=== PATIENT | female | born 1975 | race Caucasian/White ===

== ENCOUNTER 2017-09-07 13:01 | Inpatient (IN) | payer OTHER ==
--- NOTE | 2017-09-07 13:31 | CT ---
CT OF THE HEAD WITHOUT CONTRAST: Date: 09/07/17 COMPARISON: None. HISTORY: Right-sided weakness and slurred speech. TECHNIQUE: Serial axial CT imaging is obtained at 5 mm intervals from vertex through skull base without contrast . FINDINGS: The imaged paranasal sinuses/mastoid air cells are well aerated. There is no displaced calvarial frac ture. There is no intracranial hemorrhage, midline shift, mass effect, or ventricular enlargement. IMPRESSION: Unremarkable head CT. Results called to Dr. Garrett at 1310 hours on 09/07/17. CODE CR. POS: [facility]
[2017-09-07 13:32] LABS: #Basophils 0.1 thou/uL (0.0-0.2); #Eosinphils 0.2 thou/uL (0.0-0.7); #Lymphocytes 2.8 thou/uL (1.20-3.40); #Monocytes 0.5 thou/uL (0.11-0.59); #Neutrophils 6.4 thou/uL (1.40-6.50); %Basophils 0.7 % (0.0-1.0); %Eosinophils 2.1 % (0.0-10.0); %Lymphocytes 28.2 % (21.0-51.0); %Monocytes 5.1 % (0.0-10.0); Hematocrit 42.4 % (36.0-47.0); Mean Platelet Volume 7.1 fL (7.4-10.4); Red Blood Cell (RBC) Count 4.75 mill/uL (4.20-5.40)
[2017-09-07 13:37] LABS: PTT 28.9 SEC (22.9-36.1); Prothrombin Time 13.1 SEC (12.0-14.7)
[2017-09-07 13:54] LABS: ALT (SGPT) 21 U/L (8-55); AST (SGOT) 19 U/L (5-34); Alkaline Phosphatase 83 U/L (40-150); Anion Gap 14 mmol/L (10-20); BUN (Urea Nitrogen) 14 mg/dL (7.0-18.7); Bilirubin, Total 0.4 mg/dL (0.2-1.2); CK (CPK) 266 U/L (29-168); Calc. Creatinine Clearance 0 mL/min (70-130); Calcium 9.6 mg/dL (7.8-10.44); Carbon Dioxide 24 mmol/L (22-29); Chloride 103 mmol/L (98-107); Estimated GFR-MDRD 76; Globulin 3.2 g/dL (2.4-3.5); Protein, Total 7.7 g/dL (6.0-8.3)
--- NOTE | 2017-09-07 13:55 | CT ---
PRE AND POST CONTRAST ENHANCED CTA IMAGES OF THE BRAIN: PRE AND POST CONTRAST ENHANCED CTA IMAGES OF THE CAROTID ARTERIES: 09/07/2017 FINDINGS: Noncontrast enhanced CT images of the brain are unremarkable. Contrast is seen in the right and left common carotid arteries, right and left vertebral arteries, an d right and left internal carotid arteries. No significant evidence of stenosis or occlusion seen. Intracranially, the HA, MCA, and BRA[employer]PLER DINKEY vessels are unremarkable. No evidence of obvious aneurysm seen . IMPRESSION: Unremarkable CTA carotid and intracranial CTA. POS: [facility]
--- NOTE | 2017-09-07 13:56 | RAD ---
FRONTAL RADIOGRAPH OF CHEST: Date: 09/07/17 COMPARISON: 02/15/07. HISTORY: Altered mental status. FINDINGS: There is no pneumothorax or pleural fluid. No focal consolidation or alveolar edema. Heart and medias tinal contours appear within normal limits. IMPRESSION: No acute findings. POS: [facility]
[2017-09-07 13:58] LABS: Troponin I Less than 0.010 ng/mL (< 0.028)
[2017-09-07 16:28] VITALS: BMI 29.3
[2017-09-07] MEDS ORDERED: Ondansetron HCl/PF 4 MG/2 ML Vial IVP PRN (17:44)
[2017-09-07] MEDS ORDERED: Ondansetron ODT 4 MG TAB SL PRN (17:44)
[2017-09-07] MEDS ORDERED: Acetaminophen 325 MG TAB PO PRN (17:44)
[2017-09-07] MEDS ORDERED: hydrALAZINE 20 MG/ML VIAL SLOW IVP PRN (18:40)
[2017-09-07] MEDS: Gabapentin 300 MG CAP PO SCH (20:55)
--- NOTE | 2017-09-07 23:00 | HP ---
DATE OF ADMISSION: 09/07/2017 PRIMARY CARE PHYSICIAN: Dr. Inderjit Siddiqui. CHIEF COMPLAINT: Stroke like symptoms. 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 Per code green record, she started having right arm numbness and tingling. About 10 minutes later, she stated she did not feel good, slumped back i n a chair and was unable to move her left side or speak. Slowly her symptoms began to improve and at this time all of her symptoms resolved. She has no history of stroke and no history of high blood p ressure. While she was in the ER, she did have blood pressure of 203 systolic. Her blood pressure i s currently 150/84 and she is asymptomatic. ALLERGIES: None. MEDICATIONS: Gabapentin 300 mg p.o. t.i.d. PAST MEDICAL HISTORY: Herniated lumbar disk. PAST SURGICAL HISTORY: 1. Hysterectomy. 2. Tonsillectomy 3. Tubal ligation. FAMILY HISTORY: Lung cancer, breast cancer. SOCIAL HISTORY: Denies tobacco, alcohol, and drugs. REVIEW OF SYSTEMS: General: Denies fever, chills, weight change, appetite change. HEENT: Denies h eadache, vision changes, sore throat, dysphagia. Skin: Denies rashes and lesions. Cardiovascular: Denies chest pain or palpitations. Respiratory: Denies shortness of breath and cough. Gastrointes tinal: Denies nausea, vomiting, diarrhea, constipation, abdominal pain. Genitourinary: Denies dysu diane, hematuria, and discharge. Musculoskeletal: Denies joint stiffness, and swelling. Neurologic: Previous symptoms resolved. Denies weakness, numbness, dizziness. PHYSICAL EXAMINATION: VITAL SIGNS: Temperature 98.7, pulse 77, respirations 18, oxygen saturation 98% on room air, blood p ressure 150/84. GENERAL: Alert and oriented x3, with no acute distress. SKIN: No rashes or lesions. HEENT: Normocephalic. Pupils are equally round and reactive to light. Extraocular muscles intact. Moist mucous membranes with nonerythematous throat. HEART: Regular rate and rhythm, no murmurs. RESPIRATORY: Clear to auscultation bilaterally. No wheezes, rales, or rhonchi. ABDOMEN: Nontender, nondistended. Bowel sounds heard throughout. MUSCULOSKELETAL: Normal strength and range of motion throughout. NEUROLOGIC: Cranial nerves II-XII intact. Negative for cerebellar signs. Sensation within normal l imits. LABORATORY DATA: White blood cell count 10.0, hemoglobin 14.2, hematocrit 42.4, platelets 309. PT 13.1, INR 1.0, PTT 28.9. Sodium 137, potassium 3.5, chloride 103, carbon dioxide 24, BUN 14, creatinine 0.82, glucose 200, enedina cium 9.6, total bilirubin 0.4, AST 19, ALT 21, alkaline phosphatase 83. Creatine kinase 266, CK-MB 1 .2, troponin less than 0.010, total protein 7.7, albumin 4.5, globulin 3.2. Chest x-ray no acute findings. CT of the brain unremarkable. CT of the [place] angio unremarkable. ASSESSMENT AND PLAN: Transient ischemic attack. Neurology has been consulted. The patient's sympto ms have resolved. We will start full dose aspirin at this time. We will obtain multiple studies inc luding echocardiogram, MRI brain, carotid Doppler ultrasound, lipid panel. The Stroke team will be c onsulted as well.
[2017-09-08 05:14] LABS: #Basophils 0.1 thou/uL (0.0-0.2); #Eosinphils 0.2 thou/uL (0.0-0.7); #Lymphocytes 2.7 thou/uL (1.20-3.40); #Monocytes 0.8 thou/uL (0.11-0.59); #Neutrophils 5.4 thou/uL (1.40-6.50); %Basophils 0.9 % (0.0-1.0); %Eosinophils 2.5 % (0.0-10.0); %Lymphocytes 29.2 % (21.0-51.0); %Monocytes 8.7 % (0.0-10.0); Hematocrit 41.2 % (36.0-47.0); Mean Platelet Volume 7.1 fL (7.4-10.4); Red Blood Cell (RBC) Count 4.56 mill/uL (4.20-5.40); White Blood Cell (WBC) Count 9.2 thou/uL (4.8-10.8)
[2017-09-08 05:37] LABS: Anion Gap 10 mmol/L (10-20); BUN (Urea Nitrogen) 13 mg/dL (7.0-18.7); Calc. Creatinine Clearance 141 mL/min (70-130); Carbon Dioxide 26 mmol/L (22-29); Chloride 107 mmol/L (98-107); Cholesterol 141 mg/dl (< 200 Desired); Estimated GFR-MDRD Greater than 90; LDL Cholesterol, Calculated 86 mg/dL
[2017-09-08] MEDS ORDERED: Aspirin 325 mg Enteric Coated Tablet PO SCH (09:00)
--- NOTE | 2017-09-08 09:24 | CON ---
DATE OF CONSULTATION: 09/08/2017 CONSULTING PHYSICIAN: Hospitalist Service. IMPRESSION: Transient ischemic attack versus hemiplegic migraine. PLAN: 1. MRI of the brain to determine whether any ischemic event occurred. 2. Aspirin 81 mg per day. 3. Consider hypercoagulation profile if there is evidence of ischemia. HISTORY OF PRESENT ILLNESS: Ms. 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 S he has a history of migraine headaches which occur on a fairly regular basis. She has otherwise been healthy. She was working when she suddenly developed some tingling down the right arm. She felt so mewhat ill in a nonspecific manner along with this. The tingling in the arm resolved, but was follow ed by some progressive numbness and weakness of the left side of the body. She had difficulty speaki ng. She went down to the emergency room and had a CT and CTA done and no evidence of ischemic change or occlusion was noted. Her symptoms steadily improved while she was down there. The speech improv ed first followed by the arm. Her leg was last to improve, but cleared off within about a 3-hour int erval. She has never had anything like this in the past. Most of her migraines have been associated which is nausea and vomiting. She denies a history of miscarriages or blood clots. PAST MEDICAL HISTORY: Migraine. FAMILY HISTORY: Noncontributory. ALLERGIES: None. MEDICATIONS: Gabapentin. REVIEW OF SYSTEMS: Otherwise, negative. PHYSICAL EXAMINATION: VITAL SIGNS: Blood pressure 157/95, pulse 70, respirations 16, temperature 98.7. HEENT: Unremarkable. NECK: Supple. EXTREMITIES: No cyanosis. NEUROLOGIC: She is alert and appropriate. Her speech is fluent and clear. Exam is nonfocal. SUMMARY: Given the fairly odd presentation with initial right-sided symptoms followed by left-sided symptoms, I am suspicious that this is probably migraine in origin. We will see how her MRI turns ou t. I would be happy to follow up with her.
[2017-09-08] MEDS: Gabapentin 300 MG CAP PO SCH ×2 (09:25→13:55)
[2017-09-08 12:10] VITALS: BP 143/107; TEMP 98
--- NOTE | 2017-09-08 12:26 | MRI ---
NONCONTRAST ENHANCED MRI BRAIN: HISTORY: Right-sided weakness. Slurred speech. TECHNIQUE: Multiplanar, multisequence, noncontrast enhanced MRI of the brain obtained. FINDINGS: MRI demonstrates the brain to be unremarkable. No evidence of intracranial masses, hemorrhages, stro kes, or contusions seen. The ventricles are of normal size. No evidence of areas of diffusion restr iction seen. Normal flow voids seen in the major intracranial vessels. IMPRESSION: Unremarkable noncontrast enhanced MRI brain. POS: [facility]
--- NOTE | 2017-09-08 12:37 | PRG ---
DATE OF SERVICE: 09/08/2017 Ms. Corona was admitted yesterday with sudden onset of neurological deficit. She has undergone MRI of the brain, CT angio of the [place], brain CT as well as a neurological consultation. MRI of the brain is completely normal as well as her CT angio of the brain as well as brain CT. Echocar diogram is now pending. She is neurologically intact at this time and she feels much better. PHYSICAL EXAMINATION: VITAL SIGNS: Blood pressure 121/75, temperature 98.7. LUNGS: Clear. HEART: Reveals no murmur. NEUROLOGICAL: She is intact. Cranial nerves II-XII appear to have normal motor power strength. IMPRESSION: Possible transient ischemic attack versus complex migraine. PLAN: I will discuss the plans with the patient and her . Since she will be leaving here wit h a diagnosis of transient ischemic attack, we will place her on aspirin 81 mg daily. Additionally, she will also be started on low dose lisinopril 5 mg daily as well as low dose statin. She will foll ow up with me in 1 week.
--- NOTE | 2017-09-08 19:04 | DIS ---
DATE OF ADMISSION: 09/07/2017 DATE OF DISCHARGE: 09/08/2017 DISCHARGE DIAGNOSES: Probable transient ischemic attack. HOSPITAL SUMMARY: A 42-year-old female who presented to the emergency room complaining of right arm weakness, numbness, tingling associated with some difficulty speaking, with some diffused weakness to her left side. 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 CT angio of the [place] showed no evidence of any problem. CT scan o f the brain was also noted to be normal. She was admitted to the hospital and admitted to [facility] on the stroke unit. The patient was observed overnight. She had total resolution of all neurological symptoms. Neurolog ical consultation was obtained. Dr. Ibarra, his neurological consult it is a matter of record at th is time. She underwent further scheduled testing with MRI of the brain as well as echocardiogram. H er MRI of the brain at the time of discharge was normal. It is felt like she could be discharged amilcar e safely on 09/08/2017. She was discharged on aspirin 325 mg daily, lisinopril 5 mg daily and simvas tatin 10 mg daily. She will follow up with me in 1 week.
--- NOTE | 2017-09-09 15:40 | EKG ---
Test Reason : Blood Pressure : / mmHG Vent. Rate : 085 BPM Atrial Rate : 085 BPM P-R Int : 154 ms QRS Dur : 104 ms QT Int : 396 ms P-R-T Axes : 072 018 043 degrees QTc Int : 471 ms Poor data quality, interpretation may be adversely affected Normal sinus rhythm Normal ECG Confirmed by MAIRA CEDENO D.O. ([id number]), editor sound ANGELA ARREAGA ([id number]) on 09/09/2017 3:40:27 PM Referred By: Confirmed By:MAIRA CEDENO D.O.
== END 2017-09-08 13:04 | disposition home or self-care (01) | DRG 69 ==
LOC: ERS 13:01 → 2SE 15:23
PROVIDERS: ADMIT Family Medicine; ATTEND Family Medicine
DX: G45.9 Transient cerebral ischemic attack, unspecified (principal); G43.909 Migraine, unspecified, not intractable, without status migrainosus
CPT/HCPCS: 36415; 70450; 70496; 70498; 70551; 71010; 80048; 80053; 80061; 82553; 84484; 85025; 85610; 85730; 93005; 93306; 94760; G8978-GP-CH; G8979-GP-CH; G8980-GP-CH; G8987-GO-CH; G8988-GO-CH; G8989-GO-CH

== ENCOUNTER 2018-06-21 13:55 | Outpatient (CLI) | payer OTHER | END 2018-06-21 13:56 | disposition home or self-care (01) | LOC: BICMAMMO 13:55 | PROVIDERS: ATTEND Family Medicine | DX: Z12.31 Encounter for screening mammogram for malignant neoplasm of breast (principal); R92.1 Mammographic calcification found on diagnostic imaging of breast; Z80.3 Family history of malignant neoplasm of breast | CPT/HCPCS: 77063; 77067 ==

== ENCOUNTER 2018-11-30 11:48 | Outpatient (CLI) | payer OTHER ==
--- NOTE | 2018-11-30 14:01 | RAD ---
TWO VIEW CHEST: HISTORY: Chest pain. FINDINGS: The lungs are clear. No infiltrate. The heart and mediastinum are unremarkable. The osseous struct ures are unremarkable. IMPRESSION: No acute findings. POS: [facility]
== END 2018-11-30 11:49 | disposition home or self-care (01) ==
LOC: RAD 11:48
PROVIDERS: ATTEND Family Medicine
DX: R07.9 Chest pain, unspecified (principal)
CPT/HCPCS: 71046

== ENCOUNTER 2018-11-30 14:01 | Emergency (ER) | payer OTHER ==
[2018-11-30 14:38] LABS: #Basophils 0.1 thou/uL (0.0-0.2); #Eosinphils 0.2 thou/uL (0.0-0.7); #Lymphocytes 2.3 thou/uL (1.20-3.40); #Monocytes 0.6 thou/uL (0.11-0.59); %Basophils 0.8 % (0.0-1.0); %Eosinophils 1.6 % (0.0-10.0); %Lymphocytes 22.9 % (21.0-51.0); %Monocytes 5.4 % (0.0-10.0); %Neutrophils 69.3 % (42.0-75.0); Hemoglobin 14.1 g/dL (12.0-16.0); Mean Corpuscular HGB CONC 33.4 g/dL (32.0-36.0); Mean Corpuscular Hemoglobin 29.6 pg (27.0-31.0); Mean Corpuscular Volume 88.8 fL (78.0-98.0); Mean Platelet Volume 7.6 fL (7.4-10.4); Platelet Count 306 thou/uL (130-400); RBC Distribution Width 11.5 % (11.5-14.5); Red Blood Cell (RBC) Count 4.75 mill/uL (4.20-5.40); White Blood Cell (WBC) Count 10.1 thou/uL (4.8-10.8)
[2018-11-30 14:59] LABS: ALT (SGPT) 19 U/L (8-55); AST (SGOT) 17 U/L (5-34); Albumin 4.8 g/dL (3.5-5.0); Alkaline Phosphatase 80 U/L (40-150); Anion Gap 13 mmol/L (10-20); BUN (Urea Nitrogen) 19 mg/dL (7.0-18.7); Bilirubin, Total 0.4 mg/dL (0.2-1.2); Calc. Creatinine Clearance 0 mL/min (70-130); Calcium 10.2 mg/dL (7.8-10.44); Carbon Dioxide 28 mmol/L (22-29); Chloride 103 mmol/L (98-107); Estimated GFR-MDRD 78; Globulin 3.2 g/dL (2.4-3.5); Glucose 121 mg/dL (70-105); Potassium 3.6 mmol/L (3.5-5.1); Sodium 140 mmol/L (136-145)
== END 2018-11-30 15:38 | disposition home or self-care (01) ==
LOC: ERS 14:01
DX: R07.89 Other chest pain (principal); I10 Essential (primary) hypertension; Z86.73 Personal history of transient ischemic attack (TIA), and cerebral infarction without residual deficits; Z79.82 Long term (current) use of aspirin; Z79.899 Other long term (current) drug therapy
CPT/HCPCS: 36415; 71046; 80053; 84484; 85025; 85379; 93005

== ENCOUNTER 2019-10-14 11:48 | Outpatient (CLI) | payer OTHER ==
--- NOTE | 2019-10-14 14:32 | MMO ---
Bilateral MAMMO Bilat Screen DDI+ALYCIA. CLINICAL HISTORY: Patient is 44 years old and is seen for screening. The patient has the following family history of breast cancer: mother, 30'S. The patient has no personal history of cancer. VIEWS: The views performed were: bilateral craniocaudal with tomosynthesis and bilateral mediolateral oblique with tomosynthesis. FILMS COMPARED: The present examination has been compared to prior imaging studies performed at [facility] on 04/14/2015, 04/07/2016, 04/13/2017 and 06/21/2018. This study has been interpreted with the assistance of computer-aided detection. MAMMOGRAM FINDINGS: The breasts are heterogeneously dense, which could obscure a lesion on mammography. There are no suspicious masses, suspicious calcifications, or new areas of architectural distortion. IMPRESSION: THERE IS NO MAMMOGRAPHIC EVIDENCE OF MALIGNANCY. A ROUTINE FOLLOW-UP MAMMOGRAM IN 1 YEAR IS RECOMMENDED. THE RESULTS OF THIS EXAM WERE SENT TO THE PATIENT. ACR BI-RADS Category 1 - Negative MAMMOGRAPHY NOTE: 1. A negative mammogram report should not delay a biopsy if a dominant of clinically suspicious mass is present. 2. Approximately 10% to 15% of breast cancers are not detected by mammography. 3. Adenosis and dense breasts may obscure an underlying neoplasm. Reported by: LYDIA ROSAS MD Electonically Signed: [id number]
== END 2019-10-14 11:49 | disposition home or self-care (01) ==
LOC: BICMAMMO 11:48
PROVIDERS: ATTEND Family Medicine
DX: Z12.31 Encounter for screening mammogram for malignant neoplasm of breast (principal); Z80.3 Family history of malignant neoplasm of breast
CPT/HCPCS: 77063; 77067

== ENCOUNTER 2021-02-03 09:07 | Outpatient (CLI) | payer OTHER | END 2021-02-03 09:08 | disposition home or self-care (01) | LOC: ULT 09:07 | PROVIDERS: ATTEND Family Medicine | DX: G45.9 Transient cerebral ischemic attack, unspecified (principal) | CPT/HCPCS: 70450; 93880 ==

== ENCOUNTER 2022-10-14 06:48 | Outpatient (CLI) | payer BC | END 2022-10-14 06:49 | disposition home or self-care (01) | LOC: ULT 06:48 | PROVIDERS: ATTEND Nurse Practitioner Family | DX: R10.13 Epigastric pain (principal) | CPT/HCPCS: 76705 ==

== ENCOUNTER 2023-06-21 07:42 | Outpatient (CLI) | payer BC | END 2023-06-21 07:43 | disposition home or self-care (01) | LOC: RAD 07:42 | PROVIDERS: ATTEND Family Medicine | DX: Z12.39 Encounter for other screening for malignant neoplasm of breast (principal); R07.81 Pleurodynia ==

== ENCOUNTER 2023-07-03 08:56 | Outpatient (CLI) | payer BC | END 2023-07-03 08:57 | disposition home or self-care (01) | LOC: MRI 08:56 | PROVIDERS: ATTEND Family Medicine | DX: M51.9 Unspecified thoracic, thoracolumbar and lumbosacral intervertebral disc disorder (principal); R07.81 Pleurodynia | CPT/HCPCS: 72146 ==

== ENCOUNTER 2024-07-16 14:36 | Outpatient (CLI) | payer BC | END 2024-07-16 14:37 | disposition home or self-care (01) | LOC: BICMAMMO 14:36 | PROVIDERS: ATTEND Family Medicine | DX: Z12.31 Encounter for screening mammogram for malignant neoplasm of breast (principal); Z80.3 Family history of malignant neoplasm of breast | CPT/HCPCS: 77063; 77067 ==

== ENCOUNTER 2025-05-23 06:04 | Emergency (ER) | payer BC ==
[2025-05-23] MEDS ORDERED: Ketorolac Tromethamine 30 MG (1 mL) VIAL ONE (06:15)
[2025-05-23] MEDS ORDERED: Dexamethasone 4 MG TAB ONE (06:15)
== END 2025-05-23 06:25 | disposition home or self-care (01) ==
LOC: EEVIPCON 06:04 → ERS 06:04
DX: M54.6 Pain in thoracic spine (principal); Z86.73 Personal history of transient ischemic attack (TIA), and cerebral infarction without residual deficits
CPT/HCPCS: 96372; 99283; J1885; J8540

== ENCOUNTER 2025-07-24 10:42 | Outpatient (CLI) | payer BC | END 2025-07-24 10:43 | disposition home or self-care (01) | LOC: BICMAMMO 10:42 | PROVIDERS: ATTEND Emergency Medicine | DX: Z13.1 Encounter for screening for diabetes mellitus (principal); Z80.3 Family history of malignant neoplasm of breast | CPT/HCPCS: 77063; 77067 ==

== ENCOUNTER 2025-09-11 09:40 | Outpatient (CLI) | payer BC ==
[2025-09-11] MEDS ORDERED: Iopamidol 370 76% 100 ML VIAL ONE (12:51)
[2025-09-11] MEDS ORDERED: GASTROGRAFIN 30 ML BOT ONE (12:51)
== END 2025-09-11 09:41 | disposition home or self-care (01) ==
LOC: CT 09:40
PROVIDERS: ATTEND Internal Medicine Gastroenterology
DX: Z12.11 Encounter for screening for malignant neoplasm of colon (principal); R10.13 Epigastric pain; R07.89 Other chest pain; R19.4 Change in bowel habit; K57.30 Diverticulosis of large intestine without perforation or abscess without bleeding
CPT/HCPCS: 71260; 74177